=== PATIENT | male | born 1975 | race Two or more races ===

== ENCOUNTER 2018-06-05 15:44 | Emergency (ER) | payer OTHER ==
[~2018-06-05] VITALS: Ht 172.7 cm; Wt 97.5 kg
[2018-06-05] MEDS ORDERED: ATACAND32 MG (16:08)
== END 2018-06-05 17:05 | disposition home or self-care (01) ==
LOC: ER 15:44
DX: M65.841 Other synovitis and tenosynovitis, right hand (principal); M79.641 Pain in right hand